=== PATIENT | female | born 1995 | race Caucasian/White ===

== ENCOUNTER 2016-08-30 20:38 | Emergency (ER) | payer OTHER ==
[~2016-08-30] VITALS: Ht 172.7 cm; Wt 67.1 kg
[2016-08-30 20:42] VITALS: TEMP 36.7; Ht 172.7 cm; Wt 67.1 kg
--- NOTE | 2016-08-30 21:09 | DIAGNOSTIC IMAGING REPORT ---
RIGHT HAND 3 VIEWS CLINICAL HISTORY: Right hand pain. FINDINGS: 3 views of the right hand are obtained. No prior studies are available for comparison at the time of dictation. The skeletal structures are well mineralized. No fracture is seen. The joint spaces of the hand are well-maintained. The overlying soft tissues are within normal limits. IMPRESSION: Unremarkable radiographic assessment of the right hand. Electronically signed by: Celestine Teague M.D. 08/30/2016 9:07 PM Dictated Date/Time: 08/30/2016 9:06 PM
[2016-08-30] MEDS ORDERED: BCPILLS PO (21:18)
[2016-08-30 21:35] VITALS: BP 126/86; PULSE 82; O2SAT 95
--- NOTE | 2016-08-31 14:46 | EMERGENCY ROOM VISIT NOTE ---
ED Visit Note First contact with patient: 20:44 Chief Complaint: Right hand pain. History of Present Illness: Ms. Onofre is a 20-year-old white female who ambulates into the ED complaining of pain over the fourth MCP joint and fourth metacarpal. She reports historically she broke the fourth metacarpal approximately 2 years ago while playing sports. She reports no surgery was required and felt like it had healed well. Patient reports 5 days ago she was at [employer] practice. She was participating catching someone who was thrown in the air. She reports that during the catch her ring finger was hyperflexed at the MCP joint level. She reports since that time she has been having pain over the fourth MCP joint and metacarpal. She had taken a couple days off of practice and use ibuprofen with improvement of her pain. She returned a practice again today and started having increasing pain approximately 3 hours ago. Currently she describes her pain as a sharp sensation. She rates her discomfort 5/10. Her pain is nonradiating. Her pain worsens with palpation of the MCP joint and the distal aspect of the fourth metacarpal. She has not identified any alleviating factors related to the pain. She does report she took 400 mg of ibuprofen approximately 2 hours before arrival in the emergency department with no relief of her discomfort. She denies any other associated symptoms including wrist pain, hand pain, other finger pain, finger weakness/ numbness/tingling. Review of Systems: As noted above in history of present illness. Past Medical History: Ventricular septal defect, status post wisdom teeth extraction. Current Medications: control. Allergies to Medications: Patient denies. Social History: Patient is [employer] student is not employed; she lives with friends and feels safe in her home environment; she denies tobacco and alcohol use. Physical Examination: Vital Signs: Date Time Temp Pulse Resp B/P Pulse Ox O2 Delivery O2 Flow Rate FiO2 08/30/16 21:35 82 16 126/86 95 Room Air 08/30/16 20:42 36.7 91 18 163/101 99 Room Air GENERAL: 20-year-old female in mild distress due to pain, nontoxic-appearing, afebrile and hemodynamically stable. NEUROLOGICAL: Awake, alert and oriented to person, place and time. Answering questions appropriately and following commands. Good hand eye coordination. No focal motor sensory deficits. RIGHT HAND: No gross bony deformity. No tenderness in the wrist and carpals. Mild tenderness over the distal half of the fourth metacarpal and the MCP joint. There is also mild tenderness over the third and fourth metacarpals. Do not appreciate any bony deformity or crepitus over the metacarpals. There is no swelling or ecchymosis over the metacarpals. She does have full range of motion against resistance in flexion and extension of the MCP, PIP and DIP joints of the middle, ring and little fingers. Throughout the finger the skin was warm and pink and capillary refill was brisk. She is able to sensations through all dermatomes ED Course: Patient is assessed as noted above. Right hand x-rays: Were read by myself and the radiologist showing no acute fractures or dislocations. Joint spaces of the hand are well maintained and there is no soft tissue swelling. Patient was offered pain medications and refused. Patient is given ice for pain and comfort her fourth finger including the MCP joint was splinted with a metal splint. Patient was educated about tonight's findings and instructed on her treatment plan; she verbalizes understanding and agreement with this plan. Clinical Impression: Right hand pain. Decision-Making: Initially my differential diagnosis I considered fracture, sprain, strain, wrist injury, contusion and other causes. Disposition: Patient discharged home in stable condition; prior to departure she was reassessed and subjectively reported she was feeling the same. Plan: Patient was encouraged to alternate ibuprofen and acetaminophen every 3 hours, use ice over areas of pain 5 times a day for 20-30 minutes, use finger splint for the next 3-6 days. Patient was encouraged to follow-up with orthopedics if no better in 7-10 days. Patient was encouraged return the ED for worsening/uncontrolled pain, uncontrolled swelling, finger weakness/numbness/tingling or any new/concerning symptoms.
== END 2016-08-30 21:35 | disposition home or self-care (01) ==
LOC: C.EDB 20:41 → C.EDD 21:35
DX: M79.641 Pain in right hand (principal)